=== PATIENT | female | born 1980 | race Caucasian/White ===

== ENCOUNTER 2021-03-15 12:26 | Emergency (ER) | payer MEDICAID, OTHER, SELFPAY ==
[~2021-03-15] VITALS: Ht 160 cm; Wt 80.7 kg
--- NOTE | 2021-03-15 12:43 | NUR ---
ERP WAS IN TO SEE PT.
[2021-03-15] MEDS ORDERED: ONDANSETRON 2MG/ML, 2ML IVPush ONE (13:00)
[2021-03-15] MEDS ORDERED: SODIUM CHLORIDE 0.9% 1,000ML IVBOLUS ONE (13:00)
[2021-03-15] MEDS ORDERED: SODIUM CHLORIDE FLUSH 10ML SYR IVF ONE (13:00)
--- NOTE | 2021-03-15 13:00 | NUR ---
PT C/O PAIN TO RLQ, SIMILAR TO WHEN SHE WENT TO [place] 1 WEEK AGO "BUT MUCH WORSE NOW". DENIES N/V. DENIES MEDICAL HX OR SURGERIES. FRIEND AT BS.
[2021-03-15] MEDS ORDERED: ONDANSETRON 2MG/ML, 2ML ONE (13:01)
[2021-03-15] MEDS ORDERED: MORPHINE SULFATE 4 MG/ML, 1ML ONE ×2 (13:01→14:06)
[2021-03-15 13:02] LABS: BASOPHILS % (AUTO) 0 % (0-1); EOSINOPHILS % (AUTO) 2 % (1-7); LYMPHOCYTES % (AUTO) 14 % (22-44); MEAN CORPUSCULAR HEMOGLOBIN 33.4 pg (27.0-34.8); MEAN CORPUSCULAR HGB CONC 34.2 g/dL (32.4-35.8); MEAN PLATELET VOLUME 8.4 fL (7.4-10.4); MONOCYTES % (AUTO) 11 % (2-9); NEUTROPHILS % (AUTO) 73 % (42-75); PLATELET COUNT 198 x10^3/uL (130-400); RED CELL DISTRIBUTION WIDTH 12.8 % (9.6-15.2)
[2021-03-15 13:03] LABS: MD NO
[2021-03-15] MEDS: MORPHINE SULFATE 4 MG/ML, 1ML IVPush PRN ×2 (13:04→14:07)
[2021-03-15 13:13] LABS: ALANINE AMINOTRANSFERASE 15 U/L (12-78); ALBUMIN 3.2 g/dL (3.4-5.0); ANION GAP 4 mmol/L (5-15); CALCIUM 7.9 mg/dL (8.5-10.1); CHLORIDE 110 mmol/L (98-107); CREATININE 0.62 mg/dL (0.55-1.02)
[2021-03-15 13:15] LABS: ALKALINE PHOSPHATASE 101 U/L (45-117); BILIRUBIN,TOTAL 0.4 mg/dL (0.2-1.0); TOTAL PROTEIN 6.8 g/dL (6.4-8.2)
--- NOTE | 2021-03-15 13:16 | NUR ---
PT MEDICATED PER ORDERS. VERBALIZES RELIEF OF PAIN. IV BOLUS INFUSING. CALL LIGHT IN REACH. FRIEND LEAVING.
[2021-03-15] MEDS ORDERED: OMNIPAQUE 350 MG/ML, 75ML BOTTLE ONE (13:29)
[2021-03-15] MEDS ORDERED: OMNIPAQUE 350 MG/ML, 100ML BOTTLE ONE (13:40)
--- NOTE | 2021-03-15 13:59 | NUR ---
PT BACK FROM CT. ASSISTED PT TO BR VIA WC. INSTRUCTED ON CLEAN CATCH URINE SAMPLE. PT REPORTS ABD PAIN RETURNING AND RADIATING TO BACK, REQUESTING ANOTHER DOSE OF PAIN MEDS.
[2021-03-15 14:16] LABS: MICROSCOPIC AUTO
[2021-03-15 15:00] VITALS: BP 111/63
--- NOTE | 2021-03-15 15:10 | NUR ---
D/C INSTRUCTIONS, MEDS & F/U APPT RV'WD WITH PT, SHE VERBALIZES UNDERSTANDING. INSTRUCTED TO RETURN TO ED IF PAIN NOT IMPROVING. RX GIVEN X2. FRIEND HERE TO TAKE PT HOME. ASSISTED OUT OF ED VIA WC.
== END 2021-03-15 15:11 | disposition home or self-care (01) ==
LOC: ED 15:00
DX: N39.0 Urinary tract infection, site not specified (principal); R10.31 Right lower quadrant pain
CPT/HCPCS: 36415; 74177; 80053; 81001; 83690; 85025; 87086; 96361; 96374; 96375; 96376; 99285; J2270; J2405; J7030; Q9967

== ENCOUNTER 2021-05-08 15:54 | Emergency (ER) | payer MEDICAID ==
[~2021-05-08] VITALS: Ht 160 cm; Wt 82.7 kg
--- NOTE | 2021-05-08 16:24 | NUR ---
GEOMETRICIAN: PT AMBULATORY TO ROOM FROM LOBBY.
[2021-05-08] MEDS ORDERED: KETOROLAC 30 MG/1 ML ONE (18:28)
[2021-05-08] MEDS ORDERED: KETOROLAC 30 MG/1 ML IM ONE (18:30)
[2021-05-08 18:32] LABS: BASOPHILS % (AUTO) 1 % (0-1); EOSINOPHILS % (AUTO) 2 % (1-7); LYMPHOCYTES % (AUTO) 16 % (22-44); MEAN CORPUSCULAR HGB CONC 33.5 g/dL (32.4-35.8); MEAN PLATELET VOLUME 8.5 fL (7.4-10.4); MONOCYTES % (AUTO) 13 % (2-9); NEUTROPHILS % (AUTO) 69 % (42-75); PLATELET COUNT 216 x10^3/uL (130-400); RED BLOOD COUNT 4.03 x10^6/uL (3.82-5.3); RED CELL DISTRIBUTION WIDTH 13.4 % (9.6-15.2)
[2021-05-08 18:37] LABS: ALBUMIN 3.2 g/dL (3.4-5.0); ANION GAP 1 mmol/L (5-15); CALCIUM 7.9 mg/dL (8.5-10.1); CHLORIDE 108 mmol/L (98-107); CREATININE 0.63 mg/dL (0.55-1.02)
[2021-05-08 18:55] LABS: MICROSCOPIC AUTO
[2021-05-08] MEDS ORDERED: ONDANSETRON ODT 4 MG ONE (19:24)
[2021-05-08] MEDS ORDERED: ONDANSETRON ODT 4 MG PO ONE (19:30)
[2021-05-08] MEDS ORDERED: HYDROcodone/APAP 5/325 TABLET PO ONE (20:00)
[2021-05-08] MEDS ORDERED: HYDROcodone/APAP 5/325 TABLET ONE (20:00)
[2021-05-08 20:03] VITALS: BP 122/74
== END 2021-05-08 20:10 | disposition home or self-care (01) ==
LOC: ED 17:01
DX: N39.0 Urinary tract infection, site not specified (principal); R10.32 Left lower quadrant pain; F17.210 Nicotine dependence, cigarettes, uncomplicated
CPT/HCPCS: 36415; 74176; 80048; 81001; 82040; 84703; 85025; 87086; 96372; 99285; 99406; J1885; Q0162